=== PATIENT | female | born 1950 | race Caucasian/White ===

== ENCOUNTER → 2018-11-20 | Outpatient (CLI) | payer OTHER ==
[~2018-11-20] MED LIST: ACET-1966 PO; BLOOD PRESSURE PO; CALC-18 PO; CALC-649 PO; HYDR-2966 PO; HYDR-654 PO; LEVO50TA86 PO; LOR5/325 PO; MULT1TAB64 PO; THYROID PO
--- NOTE | 2018-11-24 10:18 | RADIOLOGY IMAGING REPORT ---
FACILITY: [facility] PATIENT NAME: THA RACHEL : [id number] MR: [id number] V: [id number] EXAM DATE: ORDERING PHYSICIAN: MERT CHAVEZ TECHNOLOGIST: Mary Downey PROCEDURE: BILATERAL DIGITAL SCREENING MAMMOGRAM WITH CAD ASSISTED INTERPRETATION REASON FOR STUDY: Screening. COMPARISON: Priors. VIEWS OBTAINED: 2D & 3D full field CC & MLO. BREAST DENSITY: Mild fibroglandular densities are scattered in both breasts. MAMMOGRAM FINDINGS: Several benign appearing calcifications are scattered bilaterally. IMPRESSION: BIRADS 1: Negative. DIAGNOSTIC CATEGORY 1--NEGATIVE. RECOMMENDATIONS: ROUTINE MAMMOGRAM AND CLINICAL EVALUATION IN 1 YEAR. Dictated by: Izaiah James M.D. on 11/23/2018 at 14:47 Transcribed by: ADAM on 11/23/2018 at 14:54 Approved by: Caitlin Schulz M.D. on 11/24/2018 at 10:17 [facility]
== END ==
LOC: MAMO 02:35
PROVIDERS: ATTEND Nurse Practitioner Family
DX: Z12.31 Encounter for screening mammogram for malignant neoplasm of breast (principal)
CPT/HCPCS: 77063; 77067

== ENCOUNTER → 2018-11-27 | Outpatient (CLI) | payer OTHER ==
--- NOTE | 2018-11-27 16:04 | RADIOLOGY IMAGING REPORT ---
FACILITY: [facility] PATIENT NAME: Taylor Pascual : 1950 MR: [id number] V: [id number] EXAM DATE: ORDERING PHYSICIAN: HEIKE TAVERAS TECHNOLOGIST: Location: [facility] Patient: Taylor Pascual : 1950 Visit/Account:[id number] Date of Sevice: 11/27/2018 Exam type: KNEE 3 VIEW LEFT History: Left knee pain x1 day, no known injury Comparison: None. Findings: Three views of the left knee were submitted. There is mild narrowing of the medial compartment of th e left kidney no evidence of acute fracture, dislocation, lytic or blastic bone lesion IMPRESSION: 1. Mild narrowing of the medial compartment of the left knee although no evidence of acute fracture or dislocation seen Report Dictated By: Caitlin Schulz MD at 11/27/2018 3:57 PM Report E-Signed By: Caitlin Schulz MD at 11/27/2018 3:58 PM WSN:[email or web address]
== END ==
LOC: RAD 14:58
PROVIDERS: ATTEND Nurse Practitioner Family
DX: M25.562 Pain in left knee (principal)